=== PATIENT | female | born 1945 | race Hispanic/Latino ===

== ENCOUNTER 2017-01-11 07:51 | Inpatient (IN) | payer MEDICARE ==
[2017-01-11 07:51] VITALS: BMI 28.5
[2017-01-11 08:38] LABS: BASO # 0.1 K/uL (0.0-0.2); BASO % 1.4 % (0.0-2.0); EOS # 0.4 K/uL (0.0-0.7); EOS % 5.8 % (0.0-4.0); HEMATOCRIT 40.9 % (34.0-47.0); LYMPH # 1.1 K/uL (1.0-4.3); LYMPH % 16.3 % (20.0-40.0); MEAN CELL VOLUME 92.5 fL (81.0-99.0); MEAN CORPUSCULAR HGB CONC 33.5 g/dL (33.0-37.0); MEAN PLATELET VOLUME 10.1 fL (7.2-11.7); MONO # 0.4 K/uL (0.0-0.8); MONO % 6.6 % (0.0-10.0); NRBC % 0.1 % (0.0-2.0); RED CELL DISTRIBUTION WIDTH 13.1 % (11.5-14.5); WHITE BLOOD COUNT 6.7 K/uL (4.8-10.8)
[2017-01-11 08:42] LABS: CHLORIDE 102 mmol/L (98-107); POTASSIUM 4.2 mmol/L (3.6-5.2); SODIUM 136 mmol/L (132-148)
[2017-01-11 08:44] LABS: BILIRUBIN,TOTAL 1.2 mg/dL (0.2-1.3); CARBON DIOXIDE 27 mmol/L (22-30); GFR AFRICAN-AMERICAN > 60
[2017-01-11 08:45] LABS: ALB/GLOB RATIO 1.2 (1.0-2.1); ALKALINE PHOSPHATASE 65 U/L (38-126); ALT/SGPT 37 U/L (9-52); AST/SGOT 27 U/L (14-36); BLOOD UREA NITROGEN 15 mg/dL (7-17); CALCIUM 9.9 mg/dl (8.6-10.4); GLUCOSE,RANDOM 88 mg/dL (65-105); TOTAL PROTEIN 7.9 g/dL (6.3-8.3)
--- NOTE | 2017-01-11 09:14 | C.PDOC ---
History Of Present Illness Patient is a 71 year old female, with PMHx of cardiac disease with 1 stent, heart valve replacement, presents to ED for evaluation of sudden onset of dizziness, palpitations, and tingling to upper extremities prior to arrival. Patient states that episode lasted a few minutes. Notes having similar episode in the past. Patient is actively wearing a heart monitor prescribed by Dr. Phelps. Denies chest pain, shortness of breath, nausea, or vomiting. Time Seen by Provider: 01/11/17 08:11 Chief Complaint (Nursing): Dizziness/Lightheaded History Per: Patient History/Exam Limitations: no limitations Onset/Duration Of Symptoms: Days, Intermittent Episodes Current Symptoms Are (Timing): Still Present Recent travel outside of the [place]: No Additional History Per: Patient Past Medical History Reviewed: Historical Data, Nursing Documentation, Vital Signs Vital Signs: Last Vital Signs Temp 98 F 01/11/17 10:19 Pulse 68 01/11/17 16:08 Resp 18 01/11/17 16:08 BP 139/45 L 01/11/17 16:08 Pulse Ox 95 01/11/17 16:08 - Medical History PMH: HTN, Hypercholesterolemia Family History: States: Unknown Family Hx - Social History Hx Tobacco Use: No Hx Alcohol Use: No Hx Substance Use: No - Immunization History Hx Tetanus Toxoid Vaccination: No Hx Influenza Vaccination: No Hx Pneumococcal Vaccination: No Review Of Systems Except As Marked, All Systems Reviewed And Found Negative. Constitutional: Negative for: Fever, Chills Cardiovascular: Positive for: Palpitations. Negative for: Chest Pain, Light Headedness Respiratory: Negative for: Cough, Shortness of Breath Gastrointestinal: Negative for: Nausea, Vomiting, Abdominal Pain Neurological: Positive for: Dizziness. Negative for: Weakness, Numbness, Headache Physical Exam - Physical Exam Appears: Non-toxic, No Acute Distress Skin: Normal Color, Warm, Dry Head: Atraumatic, Normacephalic Eye(s): bilateral: Normal Inspection, EOMI Nose: Normal Oral Mucosa: Moist Neck: Normal ROM, Supple Chest: Symmetrical Cardiovascular: Rhythm Regular, No Murmur Respiratory: Normal Breath Sounds, No Rales, No Rhonchi, No Wheezing Gastrointestinal/Abdominal: Soft, No Tenderness Extremity: Normal ROM, No Pedal Edema Neurological/Psych: Oriented x3, Normal Speech, Normal Cognition ED Course And Treatment - Laboratory Results Result Diagrams: 01/11/17 08:29 01/11/17 08:29 ECG: Interpreted By Me, Viewed By Me ECG Rhythm: Sinus Rhythm ECG Interpretation: No Acute Changes Interpretation Of ECG: Normal axis, normal intervals. PACs. non-specific ST changes. Rate From EC (bpm) O2 Sat by Pulse Oximetry: 98 Pulse Ox Interpretation: Normal Medical Decision Making Medical Decision Making: Impression: Dizziness, palpitations Spoke with Dr. Shay, will admit to tele obs under his service. Dr. Shay will call Dr. Phelps himself. Disposition - Disposition Disposition: HOSPITALIZED Disposition Time: 10:21 Condition: FAIR - Clinical Impression Clinical Impression: Palpitations - Scribe Statement The provider has reviewed the documentation as recorded by the Scribe Kaden Lopez All medical record entries made by the Scribe were at my direction and personally dictated by me. I have reviewed the chart and agree that the record accurately reflects my personal performance of the history, physical exam, medical decision making, and the department course for this patient. I have also personally directed, reviewed, and agree with the discharge instructions and disposition.
--- NOTE | 2017-01-11 09:33 | RAD ---
PROCEDURE: CHEST RADIOGRAPH, 1 VIEW Technique: Single view portable semi erect @ 08:25. HISTORY: chest pain COMPARISON: 02/18/2015 FINDINGS: LUNGS: Clear. PLEURA: No pneumothorax or pleural fluid seen. CARDIOVASCULAR: No radiographic findings to suggest acute or significant cardiovascular disease. OSSEOUS STRUCTURES: No significant abnormalities. VISUALIZED UPPER ABDOMEN: Normal. OTHER FINDINGS: None. IMPRESSION: No active disease. No acute/significant interval changes. Please note: No preliminary report/ innterpretation of this examination provided by emergency department personnel.
--- NOTE | 2017-01-11 10:17 | CT ---
PROCEDURE: CT HEAD WITHOUT CONTRAST. HISTORY: dizziness COMPARISON: Images from noncontrast head CT performed 11/16/11 TECHNIQUE: Axial computed tomography images were obtained through the head/brain without intravenous contrast. Radiation dose: Total exam DLP = 755.55 mGy-cm. This CT exam was performed using one or more of the following dose reduction techniques: Automated exposure control, adjustment of the mA and/or kV according to patient size, and/or use of iterative reconstruction technique. FINDINGS: HEMORRHAGE: No intracranial hemorrhage. BRAIN: Diffuse atrophy with prominence of the ventricles and sulci noted. No mass effect or edema. Bilateral basal ganglia calcifications. Intracranial atherosclerosis. Scattered white matter hypodensities, which are nonspecific, but often seen with chronic microvascular ischemic disease. Please note that MRI with diffusion imaging is more sensitive in the detection of acute ischemic event. VENTRICLES: No hydrocephalus. CALVARIUM: Unremarkable. PARANASAL SINUSES: Unremarkable as visualized. No significant inflammatory changes. MASTOID AIR CELLS: Unremarkable as visualized. No inflammatory changes. OTHER FINDINGS: None. IMPRESSION: Generalized atrophy. Nonspecific white matter changes.
[2017-01-11 18:15] VITALS: RESP 20
--- NOTE | 2017-01-11 19:37 | CP.PCM.HP ---
History of Present Illness - History of Present Illness History of Present Illness: Chief complaint: Dizziness, chest discomfort History present illness: 71-year-old female with a history of hypertension, hypercholesterolemia, coronary artery disease, status post a coronary artery stenting, aortic valve stenosis s/p AVR came to the emergency room with the sudden onset of dizziness. Last week it patient is having episodes of palpitation. Seen by certified medical dosimetrist and last Tuesday. At the time patient was given a Holter monitoring, actually patient was having Holter monitoring since yesterday, and last night, she went to the bed without any problems. This morning she woke up, suddenly she started feeling some dizzy sensation, and palpitation. She had the room spinning sensation. And she was not feeling well. She was also having some funny feeling in the upper extremities. She did not loss consciousness. She had a coffee this morning decaffeinated. She took her medications. Again this happened one more time, and she called the patient's son, and " called the 911 and came to the emergency room. During the 911, patient had a very highly elevated blood pressure. Right now the BP was good. She is feeling better at this time. She has no palpitation or chest pain at this time. she had similar episode last time, and she underwent aortic valve replacement at that time. Past medical history: Coronary artery disease, hypertension, hypercholesterolemia, osteoarthritis, aortic stenosis Surgical history: AVR Allergies: No known drug allergy Family history: Father had a history of liver cirrhosis, mother is healthy siblings are healthy Social history: She denies any alcohol or smoking, good functional capacity Current medications: Hydrochlorothiazide 12.5 mg atorvastatin 20 mg a diovan 80 mg metoprolol succinate 25 mg Review of system: Currently patient does not have any headache, she denies any chest pain or shortness of breath at this time, but this morning patient had a chest tightness and a dizziness. Minimal palpitation present. No chest pain, currently, no abdominal symptoms. 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 Electrocardiogram no new changes. Assessment/condition: 70-year-old female with history of hypertension, hypercholesteremia, aortic stenosis, coronary artery disease status post a coronary artery stenting. The patient now admitted to dizziness. Palpitations. 2 chest discomfort. Unclear etiology. Medications related maybe. Will get the Holter monitoring. I spoke to the certified medical dosimetrist. Will get a cardiology clearance. Close to monitor. Morning labs. And will follow the patient. Present on Admission - Present on Admission Any Indicators Present on Admission: No History of DVT/PE: No History of Uncontrolled Diabetes: No Urinary Catheter: No Decubitus Ulcer Present: No Past Patient History - Infectious Disease Hx of Infectious Diseases: None - Past Medical History & Family History Past Medical History?: Yes - Past Social History Smoking Status: Never Smoked - CARDIAC Hx Hypercholesterolemia: Yes Hx Hypertension: Yes - PULMONARY Hx Respiratory Disorders: No - NEUROLOGICAL Hx Neurological Disorder: No - HEENT Hx Cataracts: Yes (left eye surgery) - ENDOCRINE/METABOLIC Hx Endocrine Disorders: No - HEMATOLOGICAL/ONCOLOGICAL Hx Blood Disorders: No - INTEGUMENTARY Hx Dermatological Problems: No - MUSCULOSKELETAL/RHEUMATOLOGICAL Hx Falls: No - GASTROINTESTINAL Hx Gastrointestinal Disorders: No - GENITOURINARY/GYNECOLOGICAL Hx Genitourinary Disorders: No - PSYCHIATRIC Hx Substance Use: No - SURGICAL HISTORY Hx Surgeries: Yes Hx Cardiac Catheterization: Yes (STENT X 1) Hx Hysterectomy: Yes Other/Comment: cardiac valve replacement. - ANESTHESIA Hx Anesthesia: Yes Hx Anesthesia Reactions: No Hx Malignant Hyperthermia: No Meds Allergies/Adverse Reactions: Allergies Allergy/AdvReac Type Severity Reaction Status Date / Time No Known Allergies Allergy Verified 02/18/15 08:28 Results - Vital Signs Recent Vital Signs: Last Vital Signs Temp 98.5 F 01/11/17 17:45 Pulse 68 01/11/17 17:45 Resp 20 01/11/17 17:45 BP 135/76 01/11/17 17:45 Pulse Ox 96 01/11/17 17:45 - Labs Result Diagrams: 01/11/17 08:29 01/11/17 08:29 Labs: Laboratory Results - last 24 hr 01/11/17 01/11/17 01/11/17 08:29 08:29 08:29 WBC 6.7 RBC 4.42 Hgb 13.7 Hct 40.9 MCV 92.5 MCH 31.0 MCHC 33.5 RDW 13.1 Plt Count 160 MPV 10.1 Neut % (Auto) 69.9 Lymph % (Auto) 16.[address] % (Auto) 6.6 Eos % (Auto) 5.8 H Baso % (Auto) 1.4 Neut # 4.7 Lymph # 1.1 [place] # 0.4 Eos # 0.4 Baso # 0.1 PT 10.7 INR 1.0 APTT 32 Sodium 136 Potassium 4.2 Chloride 102 Carbon Dioxide 27 Anion Gap 12 BUN 15 Creatinine 0.7 Est GFR ( Amer) > 60 Est GFR (Non-Af Amer) > 60 Random Glucose 88 Calcium 9.9 Total Bilirubin 1.2 AST 27 ALT 37 Alkaline Phosphatase 65 Total Creatine Kinase CK-MB (Mass) Troponin I < 0.0120 Troponin I, Quant NT-Pro-B Natriuret Pep 489 Total Protein 7.9 Albumin 4.4 Globulin 3.5 Albumin/Globulin Ratio 1.2 01/11/17 14:40 WBC RBC Hgb Hct MCV MCH MCHC RDW Plt Count MPV Neut % (Auto) Lymph % (Auto) [place] % (Auto) Eos % (Auto) Baso % (Auto) Neut # Lymph # [place] # Eos # Baso # PT INR APTT Sodium Potassium Chloride Carbon Dioxide Anion Gap BUN Creatinine Est GFR ( Amer) Est GFR (Non-Af Amer) Random Glucose Calcium Total Bilirubin AST ALT Alkaline Phosphatase Total Creatine Kinase 120 CK-MB (Mass) 1.26 Troponin I Troponin I, Quant < 0.0120 NT-Pro-B Natriuret Pep Total Protein Albumin Globulin Albumin/Globulin Ratio
--- NOTE | 2017-01-11 23:30 | CP.PCM.CON ---
History of Present Illness - History of Present Illness History of Present Illness: 71 F hx of CAD s/p L Cx stent, s/p TAVR admitted chest pain and dizziness Patient scheduled for stress test and ECHO in am Physical Examination - Constitutional Appears: Non-toxic, No Acute Distress - Head Exam Head Exam: ATRAUMATIC, NORMOCEPHALIC - Eye Exam Eye Exam: EOMI - ENT Exam ENT Exam: Mucous Membranes Moist - Respiratory Exam Respiratory Exam: Clear to Ausculation Bilateral, NORMAL BREATHING PATTERN - Cardiovascular Exam Cardiovascular Exam: +S1, +S2, Murmur - GI/Abdominal Exam GI & Abdominal Exam: Soft, Normal Bowel Sounds. absent: Tenderness - Extremities Exam Extremities Exam: Normal Inspection. absent: Pedal Edema - Neurological Exam Neurological Exam: Alert, Awake, Oriented x3 - Psychiatric Exam Psychiatric exam: Normal Affect - Skin Skin Exam: Dry, Warm Past Patient History - Infectious Disease Hx of Infectious Diseases: None - Past Medical History & Family History Past Medical History?: Yes - Past Social History Smoking Status: Never Smoked - CARDIAC Hx Hypercholesterolemia: Yes Hx Hypertension: Yes - PULMONARY Hx Respiratory Disorders: No - NEUROLOGICAL Hx Neurological Disorder: No - HEENT Hx Cataracts: Yes (left eye surgery) - ENDOCRINE/METABOLIC Hx Endocrine Disorders: No - HEMATOLOGICAL/ONCOLOGICAL Hx Blood Disorders: No - INTEGUMENTARY Hx Dermatological Problems: No - MUSCULOSKELETAL/RHEUMATOLOGICAL Hx Falls: No - GASTROINTESTINAL Hx Gastrointestinal Disorders: No - GENITOURINARY/GYNECOLOGICAL Hx Genitourinary Disorders: No - PSYCHIATRIC Hx Substance Use: No - SURGICAL HISTORY Hx Surgeries: Yes Hx Cardiac Catheterization: Yes (STENT X 1) Hx Hysterectomy: Yes Other/Comment: cardiac valve replacement. - ANESTHESIA Hx Anesthesia: Yes Hx Anesthesia Reactions: No Hx Malignant Hyperthermia: No Meds Allergies/Adverse Reactions: Allergies Allergy/AdvReac Type Severity Reaction Status Date / Time No Known Allergies Allergy Verified 02/18/15 08:28 - Medications Medications: Current Medications Aspirin (Ecotrin) 81 mg PO DAILY [facility] Hydrochlorothiazide (Microzide) 12.5 mg PO MWF [facility] Losartan Potassium (Cozaar) 25 mg PO DAILY [facility] Metoprolol Succinate (Toprol Xl) 25 mg PO DAILY [facility] Pneumococcal Polyvalent Vaccine (Pneumovax 23 Vaccine) 0.5 ml IM .ONCE ONE Stop: 01/13/17 10:01 Rosuvastatin Calcium (Crestor) 10 mg PO HS [facility] Last Admin: 01/11/17 21:24 Dose: 10 mg Results - Vital Signs Recent Vital Signs: Last Vital Signs Temp 98.5 F 01/11/17 17:45 Pulse 67 01/11/17 19:43 Resp 20 01/11/17 17:45 BP 135/76 01/11/17 17:45 Pulse Ox 96 01/11/17 17:45 - Labs Result Diagrams: 01/11/17 08:29 01/11/17 08:29 Labs: Laboratory Results - last 24 hr 01/11/17 01/11/17 01/11/17 08:29 08:29 08:29 WBC 6.7 RBC 4.42 Hgb 13.7 Hct 40.9 MCV 92.5 MCH 31.0 MCHC 33.5 RDW 13.1 Plt Count 160 MPV 10.1 Neut % (Auto) 69.9 Lymph % (Auto) 16.[address] [place] % (Auto) 6.6 Eos % (Auto) 5.8 H Baso % (Auto) 1.4 Neut # 4.7 Lymph # 1.1 [place] # 0.4 Eos # 0.4 Baso # 0.1 PT 10.7 INR 1.0 APTT 32 Sodium 136 Potassium 4.2 Chloride 102 Carbon Dioxide 27 Anion Gap 12 BUN 15 Creatinine 0.7 Est GFR ( Amer) > 60 Est GFR (Non-Af Amer) > 60 Random Glucose 88 Calcium 9.9 Total Bilirubin 1.2 AST 27 ALT 37 Alkaline Phosphatase 65 Total Creatine Kinase CK-MB (Mass) Troponin I < 0.0120 Troponin I, Quant NT-Pro-B Natriuret Pep 489 Total Protein 7.9 Albumin 4.4 Globulin 3.5 Albumin/Globulin Ratio 1.2 01/11/17 14:40 WBC RBC Hgb Hct MCV MCH MCHC RDW Plt Count MPV Neut % (Auto) Lymph % (Auto) [place] % (Auto) Eos % (Auto) Baso % (Auto) Neut # Lymph # [place] # Eos # Baso # PT INR APTT Sodium Potassium Chloride Carbon Dioxide Anion Gap BUN Creatinine Est GFR ( Amer) Est GFR (Non-Af Amer) Random Glucose Calcium Total Bilirubin AST ALT Alkaline Phosphatase Total Creatine Kinase 120 CK-MB (Mass) 1.26 Troponin I Troponin I, Quant < 0.0120 NT-Pro-B Natriuret Pep Total Protein Albumin Globulin Albumin/Globulin Ratio Assessment & Plan - Assessment and Plan (Free Text) Assessment: 71 F hx of CAD s/p L Cx stent, s/p TAVR admitted chest pain and dizziness Palpitations consideration for tachy-mila/ sick sinus syndrome or sleep apnea- patient noted to snore at night, 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 reviewed patient noted to have episodes of tachycardia with HR 120-122 and episodes of sinus bradycardia down to 40bpm 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
[2017-01-12] MEDS ORDERED: Aminophylline 25 mg/ml Inj ONE (07:31)
[2017-01-12] MEDS: Metoprolol Succinate 25 mg XL Tab PO SCH (10:43)
--- NOTE | 2017-01-12 14:02 | CARD ---
APPROVED REPORT Protocol: PHARMACOLOGICAL STRESS Test Type: LEXISCAN Test Indications: PALPATATIONS Medications: LIST SCAN Medical History: PALPATATIONS Target HR: 149 bpm Resting ECG: normal Resting Heart Rate: 70 bpm Resting Blood Pressure: 140/74mmHg submaximum (85%): 127 bpm TEST SUMMARY [id number]/74.0. INFUSIONDOSE 100:[id number]/74.0. [id number]/70.2. PROCEDURE Pharmacologic stress testing was performed using 0.4mg per 5ml of regadenoson given intravenously over 7-10 seconds. POST EXERCISE Reason for Termination: Stress test completed Target HR: No Max HR: 67 bpm 67% of Maximum Predicted HR: 149 bpm Exercise duration: 00:30 min:sec, 0 Stage Exercise capacity: 1.0METs Max Blood Pressure: 160/74mmHg Blood Pressure response to exercise: normal resting BP - appropriate response Heart Rate response to exercise: appropriate Chest Pain: No, none Angina index: 0 Arrhythmia: No, none ST Change: No, none Deviation: 0 mm INTERPRETATION Stress EKG Conclusion: Nuclear report to follow EXAM: Myocardial Perfusion REST/STRESS Imaging Protocol The imaging protocol used to acquire images was Rest Tc-99m/stress Tc-99m 1 day Rest Spect myocardial perfusion imaging was performed in supine position 40 minutes following the injection of 13.2 mCi of Tc-99 Myoview. Gated Stress Spect was performed 41 minutes after intravenous 32.6 mCi Tc-99 Myoview injection. The images were gated to evaluate regional wall motion and calculate ventricular ejection fraction.Images were reconstructed using backfilter projection method in short horizontal and verticle long axis. Spect slices were generated. RESTING DATA EDV60.61dfNC1.60L/min ESV9.00mlMyocardial Timh790.00g Av. Heart Rate71.00bpm EF85.00% STRESS DATA EDV68.65hkKZ0.90L/min ESV13.00mlMyocardial Cmzp369.00g EF81.00% Regional WT score at stress:1.00 Regional WM score at stress:0.00 Summed WT score at stress:2.00 Av. Heart Rate71.00bpmSummed WM score at stress:0.00 LV Perf. Quant 17 Seg. SSS0.00 17 Seg. SRS0.00 17 Seg. SDS0.00 Stress Defect Extent (% LAD)0.00Rest Defect Extent (% LAD)0.00Rev. Defect Extent (% LAD)0.00 Stress Defect Extent (% LCX)0.00Rest Defect Extent (% LCX)0.00Rev. Defect Extent (% LCX)0.00 Stress Defect Extent (% RCA)0.00Rest Defect Extent (% RCA)0.00Rev. Defect Extent (% RCA)0.00 Stress Defect Extent (% KENDRA)0.00Rest Defect Extent (% KENDRA)0.00Rev. Defect Extent (% KENDRA)0.00 Other Information Quality:Good IMPRESSION Normal Myocardial Perfusion exercise stress study Left Ventricle LV Function:Left ventricle systolic function is normal. The Ejection Fraction is >70%. Metabolism/Perfusion There are no perfusion/metabolism defects. Conclusion 1. Normal Lexiscan Nuclear stress test
[2017-01-12] MEDS: Enoxaparin 40 mg Syringe SC SCH (14:48)
--- NOTE | 2017-01-12 23:35 | CP.PCM.PN ---
Subjective - Date & Time of Evaluation Date of Evaluation: 01/12/17 Time of Evaluation: 07:20 - Subjective Subjective: Patient s/p Stress test: Normal ECHO: Normal EF. TAVR (Normal function) EP eval for palpitations Physical Examination - Constitutional Appears: Non-toxic, No Acute Distress - Head Exam Head Exam: ATRAUMATIC, NORMOCEPHALIC - Eye Exam Eye Exam: EOMI - ENT Exam ENT Exam: Mucous Membranes Moist - Respiratory Exam Respiratory Exam: Clear to Ausculation Bilateral, NORMAL BREATHING PATTERN - Cardiovascular Exam Cardiovascular Exam: +S1, +S2, Murmur - GI/Abdominal Exam GI & Abdominal Exam: Soft, Normal Bowel Sounds. absent: Tenderness - Extremities Exam Extremities Exam: Normal Inspection. absent: Pedal Edema - Neurological Exam Neurological Exam: Alert, Awake, Oriented x3 - Psychiatric Exam Psychiatric exam: Normal Affect - Skin Skin Exam: Dry, Warm Objective - Vital Signs/Intake and Output Vital Signs (last 24 hours): Temp Pulse Resp BP Pulse Ox 98.2 F 74 20 123/68 97 01/12/17 16:00 01/12/17 16:00 01/12/17 16:00 01/12/17 16:00 01/12/17 16:00 - Medications Medications: Current Medications Aspirin (Ecotrin) 81 mg PO DAILY [facility] Last Admin: 01/12/17 10:42 Dose: 81 mg Enoxaparin Sodium (Lovenox) 40 mg SC DAILY [facility] Last Admin: 01/12/17 14:48 Dose: 40 mg Hydrochlorothiazide (Microzide) 12.5 mg PO [facility] Last Admin: 01/12/17 10:42 Dose: 12.5 mg Losartan Potassium (Cozaar) 25 mg PO DAILY [facility] Last Admin: 01/12/17 10:41 Dose: 25 mg Metoprolol Succinate (Toprol Xl) 25 mg PO DAILY [facility] Last Admin: 01/12/17 10:43 Dose: Not Given Pneumococcal Polyvalent Vaccine (Pneumovax 23 Vaccine) 0.5 ml IM .ONCE ONE Stop: 01/13/17 10:01 Rosuvastatin Calcium (Crestor) 10 mg PO [facility] Last Admin: 01/12/17 22:09 Dose: 10 mg - Labs Labs: 01/11/17 08:29 01/11/17 08:29 PT 10.7 SECONDS (9.7-12.2) 01/11/17 08:29 INR 1.0 01/11/17 08:29 APTT 32 SECONDS (21-34) 01/11/17 08:29 Assessment and Plan - Assessment and Plan (Free Text) Assessment: 71 F hx of CAD s/p L Cx stent, s/p TAVR admitted chest pain and dizziness Palpitations consideration for tachy-mila/ sick sinus syndrome or sleep apnea- patient noted to snore at night, 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 patient noted to have episodes of tachycardia with HR 120-122 and episodes of sinus bradycardia down to 40bpm 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
--- NOTE | 2017-01-12 23:50 | CARD ---
APPROVED REPORT EKG Measurement Heart [id number] [id number] <Conclusion> Sinus rhythm with premature atrial complexes Nonspecific ST abnormality Abnormal ECG
--- NOTE | 2017-01-13 00:47 | CARD ---
APPROVED REPORT EXAM: Two-dimensional and M-mode echocardiogram with Doppler and color Doppler. Other Information Quality : GoodRhythm : NSR INDICATION Dizziness and Vertigo Cardiac Disease: CAD Palpitations S/P STENT 2D DIMENSIONS LVOT Diameter1.9 (1.8-2.4cm) M-Mode DIMENSIONS RVDd0.66 (2.1-3.2cm)Left Atrium (MM)5.09 (2.5-4.0cm) IVSd0.79 (0.7-1.1cm)Aortic Root2.32 (2.2-3.7cm) LVDd5.90 (4.0-5.6cm)Aortic Cusp Exc.1.40 (1.5-2.0cm) PWd0.89 (0.7-1.1cm)FS (%) 54 % LVDs2.69 (2.0-3.8cm)LVEF (%)85 (>50%) Aortic Valve AoV Peak Ytbckkbh573.2cm/sAoV VTI65.0cmAO Peak GR.35mmHg LVOT Peak Rguzwayn460.4cm/sLVOT VTI31.58cmAO Mean GR.18mmHg LEXI (VMAX)1.80hv8RWW (VTI)1.33cm2 Mitral Valve MV E Hoydswjw447.0cm/sMV A Swirxfuv90.5cm/sE/A ratio1.3 TDI E/Lateral E'0.0E/Medial E'0.0 Tricuspid Valve TR Peak Idbvvalc588of/sTR Peak Gr.09mzCeZCYU13tnOg LEFT VENTRICLE The left ventricle is normal size. There is normal left ventricular wall thickness. The left ventricular function is normal. The left ventricular ejection fraction is within the normal range. About 65%. No regional wall motion abnormalities noted. The left ventricular diastolic function is normal. No left ventricle thrombus noted on this study. There is no ventricular septal defect visualized. There is no left ventricular aneurysm. There is no mass noted in the left ventricle. RIGHT VENTRICLE The right ventricle is normal size. There is normal right ventricular wall thickness. The right ventricular systolic function is normal. ATRIA The left atrium size is severely dilated. The right atrium size is moderately dilated. The interatrial septum is intact with no evidence for an atrial septal defect. AORTIC VALVE A normal appearing bio-prosthetic aortic valve is noted.. Peak/mean gradients are 35/20 mm Hg. estimated valve area is not correct and likely overestiated at 1.3 cm, as the LVOT diameter was not correctly measured. The DVI was .46. Valve function appears normal. Gradient is mildly increased, but DVI, AT are normal. No aortic regurgitation is present. There is no aortic valvular stenosis. There is no aortic valvular vegetation. MITRAL VALVE The mitral valve is normal in structure and function. There is no evidence of mitral valve prolapse. There is no mitral valve stenosis. There is no mitral valve regurgitation noted. TRICUSPID VALVE The tricuspid valve is normal in structure and function. There is no tricuspid valve regurgitation noted. There is no tricuspid valve prolapse or vegetation. There is no tricuspid valve stenosis. PULMONIC VALVE The pulmonary valve is normal in structure and function. There is no pulmonic valvular regurgitation. There is no pulmonic valvular stenosis. GREAT VESSELS The aortic root is normal in size. The ascending aorta is normal in size. The pulmonary artery is normal. The IVC is normal in size and collapses >50% with inspiration. PERICARDIAL EFFUSION The pericardium appears normal. There is no pleural effusion. <Conclusion> The left atrium size is severely dilated. The right atrium size is moderately dilated. A normal appearing bio-prosthetic aortic valve is noted.. Peak/mean gradients are 35/20 mm Hg. estimated valve area is not correct and likely overestiated at 1.3 cm, as the LVOT diameter was not correctly measured. The DVI was .46. Valve function appears normal. Gradient is mildly increased, but DVI, AT are normal. The left ventricular function is normal. The left ventricular ejection fraction is within the normal range. About 65%.
--- NOTE | 2017-01-13 01:45 | CP.PCM.PN ---
Subjective - Date & Time of Evaluation Date of Evaluation: 01/12/17 Time of Evaluation: 20:00 Objective - Vital Signs/Intake and Output Vital Signs (last 24 hours): Temp Pulse Resp BP Pulse Ox 98.2 F 74 20 123/68 97 01/12/17 16:00 01/12/17 16:00 01/12/17 16:00 01/12/17 16:00 01/12/17 16:00 - Medications Medications: Current Medications Aspirin (Ecotrin) 81 mg PO DAILY [facility] Last Admin: 01/12/17 10:42 Dose: 81 mg Enoxaparin Sodium (Lovenox) 40 mg SC DAILY [facility] Last Admin: 01/12/17 14:48 Dose: 40 mg Hydrochlorothiazide (Microzide) 12.5 mg PO [facility] Last Admin: 01/12/17 10:42 Dose: 12.5 mg Losartan Potassium (Cozaar) 25 mg PO DAILY [facility] Last Admin: 01/12/17 10:41 Dose: 25 mg Metoprolol Succinate (Toprol Xl) 25 mg PO DAILY [facility] Last Admin: 01/12/17 10:43 Dose: Not Given Pneumococcal Polyvalent Vaccine (Pneumovax 23 Vaccine) 0.5 ml IM .ONCE ONE Stop: 01/13/17 10:01 Rosuvastatin Calcium (Crestor) 10 mg PO [facility] Last Admin: 01/12/17 22:09 Dose: 10 mg - Labs Labs: 01/11/17 08:29 01/11/17 08:29 PT 10.7 SECONDS (9.7-12.2) 01/11/17 08:29 INR 1.0 01/11/17 08:29 APTT 32 SECONDS (21-34) 01/11/17 08:29
[2017-01-13] MEDS ORDERED: Pneumococcal 23-Valent Vaccine IM ONE (10:00)
[2017-01-13] MEDS ORDERED: Influenza Vaccine 60 mcg/0.5 mL SYR (4YR UP) IM ONE (10:00)
--- NOTE | 2017-01-13 10:36 | CP.PCM.PN ---
<Kendra CRUZAna K - Last Filed: 01/13/17 11:40> Subjective - Date & Time of Evaluation Date of Evaluation: 01/13/17 Time of Evaluation: 10:28 - Subjective Subjective: Cardiology Progress note for Dr. Phelps Patient seen and examined. Patient states she feels well today. Patient states that on day of admission she felt dizzy and that her arms were limp and felt they were not part of her body. Patient admits to snoring at night. Patient currently asymptomatic but states she has felt her heart racing on one or two occasions since hospitalization. Objective - Vital Signs/Intake and Output Vital Signs (last 24 hours): Temp Pulse Resp BP Pulse Ox 98.9 F 84 20 165/82 H 98 01/13/17 09:27 01/13/17 09:27 01/13/17 09:27 01/13/17 09:27 01/13/17 09:27 - Medications Medications: Current Medications Aspirin (Ecotrin) 81 mg PO DAILY [facility] Last Admin: 01/12/17 10:42 Dose: 81 mg Enoxaparin Sodium (Lovenox) 40 mg SC DAILY [facility] Last Admin: 01/12/17 14:48 Dose: 40 mg Hydrochlorothiazide (Microzide) 12.5 mg PO MWF [facility] Last Admin: 01/12/17 10:42 Dose: 12.5 mg Losartan Potassium (Cozaar) 25 mg PO DAILY [facility] Last Admin: 01/12/17 10:41 Dose: 25 mg Metoprolol Succinate (Toprol Xl) 25 mg PO DAILY [facility] Last Admin: 01/12/17 10:43 Dose: Not Given Rosuvastatin Calcium (Crestor) 10 mg PO HS [facility] Last Admin: 01/12/17 22:09 Dose: 10 mg - Labs Labs: 01/11/17 08:29 01/11/17 08:29 PT 10.7 SECONDS (9.7-12.2) 01/11/17 08:29 INR 1.0 01/11/17 08:29 APTT 32 SECONDS (21-34) 01/11/17 08:29 - Constitutional Appears: Non-toxic, No Acute Distress - Head Exam Head Exam: ATRAUMATIC, NORMOCEPHALIC - Eye Exam Eye Exam: EOMI - ENT Exam ENT Exam: Mucous Membranes Moist - Respiratory Exam Respiratory Exam: Clear to Ausculation Bilateral, NORMAL BREATHING PATTERN - Cardiovascular Exam Cardiovascular Exam: +S1, +S2, Murmur - GI/Abdominal Exam GI & Abdominal Exam: Soft, Normal Bowel Sounds. absent: Tenderness - Extremities Exam Extremities Exam: Normal Inspection. absent: Pedal Edema - Neurological Exam Neurological Exam: Alert, Awake, Oriented x3 - Psychiatric Exam Psychiatric exam: Normal Affect - Skin Skin Exam: Dry, Warm Assessment and Plan - Assessment and Plan (Free Text) Assessment: 71 F hx of CAD s/p L Cx stent, s/p TAVR admitted chest pain and dizziness Palpitations consideration for tachy-mila/ sick sinus syndrome or sleep apnea- patient noted to snore at night, may consider sleep study for further work up patient sitter events reviewed patient noted to have episodes of tachycardia with HR 120-122 and episodes of sinus bradycardia down to 40bpm 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 Phelps <Roland Phelps - Last Filed: 01/13/17 23:26> Objective - Vital Signs/Intake and Output Vital Signs (last 24 hours): Temp Pulse Resp BP Pulse Ox 98.2 F 66 20 165/85 H 97 01/13/17 16:00 01/13/17 16:00 01/13/17 16:00 01/13/17 16:00 01/13/17 16:00 - Medications Medications: Current Medications Aspirin (Ecotrin) 81 mg PO DAILY [facility] Last Admin: 01/13/17 11:20 Dose: 81 mg Enoxaparin Sodium (Lovenox) 40 mg SC DAILY [facility] Last Admin: 01/13/17 11:20 Dose: 40 mg Hydrochlorothiazide (Microzide) 12.5 mg PO [facility] Last Admin: 01/12/17 10:42 Dose: 12.5 mg Losartan Potassium (Cozaar) 25 mg PO DAILY [facility] Last Admin: 01/13/17 11:21 Dose: 25 mg Metoprolol Succinate (Toprol Xl) 25 mg PO DAILY [facility] Last Admin: 01/13/17 11:21 Dose: 25 mg Rosuvastatin Calcium (Crestor) 10 mg PO [facility] Last Admin: 01/13/17 21:55 Dose: 10 mg - Labs Labs: 01/11/17 08:29 01/11/17 08:29 PT 10.7 SECONDS (9.7-12.2) 01/11/17 08:29 INR 1.0 01/11/17 08:29 APTT 32 SECONDS (21-34) 01/11/17 08:29 Assessment and Plan - Assessment and Plan (Free Text) Assessment: Patient seen and evaluated with the medical technician assistant Plan of care documented
[2017-01-13] MEDS: Enoxaparin 40 mg Syringe SC SCH (11:20)
[2017-01-13] MEDS: Metoprolol Succinate 25 mg XL Tab PO SCH (11:21)
--- NOTE | 2017-01-13 20:11 | CP.PCM.CON ---
History of Present Illness - History of Present Illness History of Present Illness: This patient presented with dizziness while sitting on a chair; experienced a brief spinning sensation felt weak in her upper extremities; lasted a minute; check her blood pressure (160/104mmHg); felt fine; and then while walking felt ' weak' 'not well'; called her son for an ambulance and was brought in to the ER; symptoms did not recur; she had a holter monitor during both these episodes; hospital course was unremarkable except for episodes of palpitations. telemetry showed heart rates between 40-120 She denied syncope diaphoresis blurred vision, chest pain dyspnea; she was seen by n ENT physician in [place] after she heard a Pop in her ear; he removed some wax. Past medical: systemic hypertension hyperlipidemia, coronary artery disease, aortic valve disease Surgical history: AVR Allergies: No known drug allergy Family history: Father had a history of liver cirrhosis, mother is healthy siblings are healthy Social history: She denies any alcohol or smoking, good functional capacity Medications: Hydrochlorothiazide 12.5 mg atorvastatin 20 mg a diovan 80 mg metoprolol succinate 25 mg Past Patient History - Infectious Disease Hx of Infectious Diseases: None - Past Medical History & Family History Past Medical History?: Yes - Past Social History Smoking Status: Never Smoked - CARDIAC Hx Hypercholesterolemia: Yes Hx Hypertension: Yes - PULMONARY Hx Respiratory Disorders: No - NEUROLOGICAL Hx Neurological Disorder: No - HEENT Hx Cataracts: Yes (left eye surgery) - ENDOCRINE/METABOLIC Hx Endocrine Disorders: No - HEMATOLOGICAL/ONCOLOGICAL Hx Blood Disorders: No - INTEGUMENTARY Hx Dermatological Problems: No - MUSCULOSKELETAL/RHEUMATOLOGICAL Hx Falls: No - GASTROINTESTINAL Hx Gastrointestinal Disorders: No - GENITOURINARY/GYNECOLOGICAL Hx Genitourinary Disorders: No - PSYCHIATRIC Hx Substance Use: No - SURGICAL HISTORY Hx Surgeries: Yes Hx Cardiac Catheterization: Yes (STENT X 1) Hx Hysterectomy: Yes Other/Comment: cardiac valve replacement. - ANESTHESIA Hx Anesthesia: Yes Hx Anesthesia Reactions: No Hx Malignant Hyperthermia: No Meds Allergies/Adverse Reactions: Allergies Allergy/AdvReac Type Severity Reaction Status Date / Time No Known Allergies Allergy Verified 02/18/15 08:28 - Medications Medications: Current Medications Aspirin (Ecotrin) 81 mg PO DAILY [facility] Last Admin: 01/13/17 11:20 Dose: 81 mg Enoxaparin Sodium (Lovenox) 40 mg SC DAILY [facility] Last Admin: 01/13/17 11:20 Dose: 40 mg Hydrochlorothiazide (Microzide) 12.5 mg PO MWF [facility] Last Admin: 01/12/17 10:42 Dose: 12.5 mg Losartan Potassium (Cozaar) 25 mg PO DAILY [facility] Last Admin: 01/13/17 11:21 Dose: 25 mg Metoprolol Succinate (Toprol Xl) 25 mg PO DAILY [facility] Last Admin: 01/13/17 11:21 Dose: 25 mg Rosuvastatin Calcium (Crestor) 10 mg PO HS [facility] Last Admin: 01/12/17 22:09 Dose: 10 mg Physical Exam - Additional Findings Additional findings: No distress No nystagmus Normal venous pressures Faint bilateral carotid bruits No goiter ?PMI Normal heart sounds intensity 2/6 basal systolic ejection murmur No edema DP +=+ Alert oriented x 3, flunet comprehends, Symmetrical facials No motor deficit Results - Vital Signs Recent Vital Signs: Last Vital Signs Temp 98.2 F 01/13/17 16:00 Pulse 66 01/13/17 16:00 Resp 20 01/13/17 16:00 BP 165/85 H 01/13/17 16:00 Pulse Ox 97 01/13/17 16:00 - Labs Result Diagrams: 01/11/17 08:29 01/11/17 08:29 Assessment & Plan - Assessment and Plan (Free Text) Assessment: Ms. Mabry has had two episodes of dizziness associated once with a spinning sensation and heart rates ranging from 40-120. The mechanism of dizziness is unclear, seemingly suggests a vestibular mechanism ?peripheral Assuming a hemodynamic basis (of note patient detected normal pressures minutes after the episode; and the holter during the episode was unrevealing), the occurence at rest argues against a mechanical obstruction or an orthostatic/ vagal event; an arrhythmia is plausible however the heart rates detected millitate against incriminating it; a pacemaker or an implantable loop recorder is of questionable utility. I would reassure her, explore ENT/Neurological basis, obtain a tilt table study
[2017-01-14] MEDS: Enoxaparin 40 mg Syringe SC SCH (10:34)
[2017-01-14] MEDS: Metoprolol Succinate 25 mg XL Tab PO SCH (10:34)
--- NOTE | 2017-01-14 11:36 | CP.PCM.PN ---
Subjective - Date & Time of Evaluation Date of Evaluation: 01/14/17 Time of Evaluation: 11:34 - Subjective Subjective: PT CLEARED BY DR. ELLIOTT THIS MORNING. PER HIM DR. RODAS DOES NOT THINK IT IS NECESSARY TO DO LOOP RECORDER AT THIS TIME AND THAT SYMPTOMS ARE LIKELY NOT CARDIAC RELATED. PT TO F/U WITH Rajiv TORRES IN THE OFFICE NEXT WEEK; INSTRUCTED THAT SHE MAY HAVE FURTHER TESTING OP FOR POSSIBLE VERTIGO. NO NEED FOR NEW RX; HAS ALL MEDS AT HOME AND DOES NOT NEED REFILLS. ALL F/U AND D/ C PLANS DISCUSSED WITH THE PT AND SHE VERBALIZES UNDERSTANDING OF EVERYTHING. FAMILY WILL PICK HER UP THIS AFTERNOON. NO FURTHER ORDERS, Objective - Vital Signs/Intake and Output Vital Signs (last 24 hours): Temp Pulse Resp BP Pulse Ox 98.3 F 78 20 125/80 98 01/14/17 07:40 01/14/17 08:15 01/14/17 07:40 01/14/17 07:40 01/14/17 07:40 - Medications Medications: Current Medications Aspirin (Ecotrin) 81 mg PO DAILY [facility] Last Admin: 01/14/17 10:34 Dose: 81 mg Enoxaparin Sodium (Lovenox) 40 mg SC DAILY [facility] Last Admin: 01/14/17 10:34 Dose: 40 mg Hydrochlorothiazide (Microzide) 12.5 mg PO MWF [facility] Last Admin: 01/14/17 10:34 Dose: 12.5 mg Losartan Potassium (Cozaar) 25 mg PO DAILY [facility] Last Admin: 01/14/17 10:34 Dose: 25 mg Metoprolol Succinate (Toprol Xl) 25 mg PO DAILY [facility] Last Admin: 01/14/17 10:34 Dose: 25 mg Rosuvastatin Calcium (Crestor) 10 mg PO HS [facility] Last Admin: 01/13/17 21:55 Dose: 10 mg - Labs Labs: 01/11/17 08:29 01/11/17 08:29 PT 10.7 SECONDS (9.7-12.2) 01/11/17 08:29 INR 1.0 01/11/17 08:29 APTT 32 SECONDS (21-34) 01/11/17 08:29
[2017-01-14 12:33] VITALS: BP 130/81; PULSE 69; TEMP 98.2; O2SAT 95
--- NOTE | 2017-01-14 21:19 | CP.PCM.PN ---
Subjective - Date & Time of Evaluation Date of Evaluation: 01/14/17 Time of Evaluation: 07:05 - Subjective Subjective: Patient seen and evaluated EP evaluation appreciated Physical Examination - Constitutional Appears: Non-toxic, No Acute Distress - Head Exam Head Exam: ATRAUMATIC, NORMOCEPHALIC - Eye Exam Eye Exam: EOMI - ENT Exam ENT Exam: Mucous Membranes Moist - Respiratory Exam Respiratory Exam: Clear to Ausculation Bilateral, NORMAL BREATHING PATTERN - Cardiovascular Exam Cardiovascular Exam: +S1, +S2, Murmur - GI/Abdominal Exam GI & Abdominal Exam: Soft, Normal Bowel Sounds. absent: Tenderness - Extremities Exam Extremities Exam: Normal Inspection. absent: Pedal Edema - Neurological Exam Neurological Exam: Alert, Awake, Oriented x3 - Psychiatric Exam Psychiatric exam: Normal Affect - Skin Skin Exam: Dry, Warm Objective - Vital Signs/Intake and Output Vital Signs (last 24 hours): Temp Pulse Resp BP Pulse Ox 98.2 F 69 20 130/81 95 01/14/17 12:28 01/14/17 12:28 01/14/17 12:28 01/14/17 12:28 01/14/17 12:28 - Labs Labs: 01/11/17 08:29 01/11/17 08:29 PT 10.7 SECONDS (9.7-12.2) 01/11/17 08:29 INR 1.0 01/11/17 08:29 APTT 32 SECONDS (21-34) 01/11/17 08:29 Assessment and Plan - Assessment and Plan (Free Text) Assessment: 71 F hx of CAD s/p L Cx stent, s/p TAVR admitted chest pain and dizziness Palpitations/Dizziness Unlikely cardiogenic as per EP Currently on Toprol XL 25mg daily Will continue to monitor as out patient Aortic stenosis patient s/p TAVR echo reviewed, valve functioning well CAD history L circumflex stent continue medical management with aspirin, statin
== END 2017-01-14 12:30 | disposition home or self-care (01) | DRG 156 ==
LOC: C.ER 07:51 → C.9E 10:21 → C.6T 17:07 → OBSVTOIN 01-12 14:47
PROVIDERS: ADMIT Internal Medicine; ATTEND Internal Medicine
DX: G47.30 Sleep apnea, unspecified (principal); I49.5 Sick sinus syndrome; Z95.2 Presence of prosthetic heart valve; I10 Essential (primary) hypertension; Z95.5 Presence of coronary angioplasty implant and graft; E78.00 Pure hypercholesterolemia, unspecified; I25.10 Atherosclerotic heart disease of native coronary artery without angina pectoris; Z79.82 Long term (current) use of aspirin